=== PATIENT | female | born 1950 | race Caucasian/White ===

== ENCOUNTER 2023-11-14 23:13 | Emergency (ER) | payer OTHER, MEDICAID ==
[~2023-11-14] VITALS: Ht 167.6 cm; Wt 75.0 kg
[2023-11-14 23:20] VITALS: TEMP 98; O2SAT 96
[2023-11-15 00:30] VITALS: BP 183/99; PULSE 101; RESP 16; O2SAT 98
[2023-11-15] MEDS: HYDROCHLOROTHIAZIDE 25MG TABLET PO ONE (00:37)
[2023-11-15] MEDS: INSULIN REGULAR (HUMULIN R) 1000UNITS/10ML VIAL SUBCUT ONE (00:37)
[2023-11-15] MEDS: INSULIN REGULAR (HUMULIN R) 1000UNITS/10ML VIAL IV ONE (02:14)
[2023-11-15] MEDS: ACETAMINOPHEN 325MG TABLET PO ONE (02:15)
[2023-11-15] MEDS: SODIUM CHLORIDE 0.9% 1,000 ML IV ONE (03:14)
== END 2023-11-15 04:07 | disposition home or self-care (01) ==
LOC: EDBD 23:13 → ER 23:26
DX: E11.65 Type 2 diabetes mellitus with hyperglycemia (principal); I10 Essential (primary) hypertension
CPT/HCPCS: 99284; 82962 ×2; 96374; 96361; J7030; J1815